=== PATIENT | female | born 1995 | race Hispanic/Latino ===

== ENCOUNTER 2021-08-11 20:26 | Emergency (ER) | payer BC, SELFPAY ==
[2021-08-11] MEDS ORDERED: predniSONE 20 MG TAB ONE (20:42)
== END 2021-08-11 21:30 | disposition home or self-care (01) ==
LOC: BURERS 20:26
DX: J45.901 Unspecified asthma with (acute) exacerbation (principal)
CPT/HCPCS: 94640; J7512; J7620